=== PATIENT | male | born 1995 | race Caucasian/White ===

== ENCOUNTER 2022-05-17 08:53 | Emergency (ER) | payer MEDICAID, SELFPAY ==
[2022-05-17 09:02] VITALS: BP 133/78; PULSE 74; RESP 16; TEMP 36.4; O2SAT 100; BMI 25.8
--- NOTE | 2022-05-17 09:30 | ED.LOWEXIN ---
HPI - Extremity Injury (Lower) General Chief Complaint: Extremity Injury, Lower Stated Complaint: R knee and ankle injury Time Seen by Provider: 05/17/22 09:11 Source: patient Mode of arrival: ambulatory Limitations: no limitations History of Present Illness HPI Narrative: This is a [id number] presenting today with complaints of right knee weakness and right ankle tightness since yesterday. Patient states that while he was in [facility], his opponent was holding his straightened right leg in the opponents arm, and his straightened right leg twisted outwards and patient felt a popping sensation in his right knee and right ankle. Patient reports that he has not had pain in his right knee or ankle, but states that he feels as though his right knee is going to give out on him. He also reports that his right ankle feels tight . He has been able to ambulate, but limps as he is cautious as if his right leg will give out on him. Denies taking any medications to treat his symptoms. Hx of right knee sprain in the past, otherwise no surgeries or injuries to his right ankle or right knee. complaint: knee injury and ankle injury Onset (ago): day(s) Place: other Severity: moderate Relieving factors: nothing Exacerbating factors: weight bearing Associated symptoms: snap/pop sensation Other symptoms: none Related Data Allergies Allergy/AdvReac Type Severity Reaction Status Date / Time No Known Allergies Allergy Unverified 11/11/19 18:38 [No Known Allergies*] Review of Systems Review of Systems: Yes all other systems are reviewed and are negative Constitutional: Constitutional: Reports no additional constitutional complaints, Denies body ache(s), Denies chills, Denies fever(s), Denies headache(s) and Denies weakness Eyes: Eyes: Reports no additional eye complaints and Denies change in vision ENT: Reports system reviewed and no additional complaints, except as documented, Denies dizziness, Denies headache(s), Denies nasal congestion, Denies nasal discharge and Denies neck pain Cardiovascular: Cardiovascular: Reports no additional cardiovascular complaints, Denies chest pain, Denies leg edema and Denies dyspnea Respiratory: Respiratory: Reports no additional respiratory complaints, Denies cough and Denies dyspnea Gastrointestinal: Gastrointestinal: Reports no additional gastrointestinal complaints, Denies abdominal pain, Denies diarrhea, Denies nausea and Denies vomiting Genitourinary: Genitourinary: Denies urinary incontinence Musculoskeletal: Musculoskeletal: Reports no additional musculoskeletal complaints, Reports abnormal gait, Denies back pain, Denies arthralgias, Denies joint swelling, Denies neck pain, Denies numbness, Reports stiffness and Denies tingling Integumentary/Breasts: Skin/Breast: Reports system reviewed and no additional complaints, except as docu and Denies rash Neurologic: Reports system reviewed and no additional complaints, except as documented, Denies Abnormal speech present, Reports abnormal gait, Denies dizziness, Denies headache(s), Denies numbness, Denies tingling and Denies weakness [facility] Social History Social History Advance Directives: No Advance Directives Information Provided: No Physical Exam Vital Signs: Vital Signs: Last Vital Signs Temp 97.5 F 05/17/22 09:02 Pulse 74 05/17/22 09:02 Resp 16 05/17/22 09:02 BP 133/78 05/17/22 09:02 Pulse Ox 100 05/17/22 09:02 O2 Del Method Room Air 05/17/22 09:02 BMI result Body Mass Index 25.8 Const: General: cooperative, healthy appearing, comfortable and no acute distress Orientation/consciousness: patient oriented x3 Limitations: no limitations HEENT: Head: Yes normal to inspection Ears: hearing grossly normal bilaterally General nose exam: Normal external nose present Face and sinus: Yes normal facial exam Mouth: Normal oral and palatal mucosa present Throat: Yes posterior oropharynx normal Eyes: General: appearance normal, both eyes and all related structures Pupils: Equal, round and reactive pupils present Neck: Neck: Yes normal visual inspection Chest: Chest palpation & inspection: normal inspection of the chest Resp: Effort & Inspection: normal respiratory effort Auscultation: clear to auscultation bilaterally Cardio: Rate: regular rate Rhythm: regular rhythm Peripheral pulses: Peripheral pulses 2+ throughout GI: Inspection: Yes normal to inspection Palpation (GI): Soft to palpation and nontender Auscultation: normal bowel sounds Back/Spine/Pelvis: Thoracic/Lumbar Spine: thoracic and lumbar spine normal to inspection Skin: General skin exam: no rashes or lesions noted Neuro: General: patient oriented x3, no focal motor deficits and normal sensation to monofilament Cranial nerves: Yes Equal, round and reactive pupils present Cognition (Neuro): normal cognition Speech: No Abnormal speech present Gait exam (Neuro): Normal gait present Motor exam (neuro): 5/5 motor strength present throughout Extrem: Other: Right knee with no gross deformities, edema, erythema, increased warmth, or ecchymosis. Passive and active range of motion of the right knee is full and intact. No creptius, no patellar ballottement. No tenderness over the medial or lateral joint line. No tenderness with varus or valgus strain. Mahmood's test is negative. Right ankle and foot: no obvious deformities, erythema, edema, or ecchymosis. Nontender tarsals and metatarsals. No tenderness over the lateral or medial mallelous. Distal pulses 2+. Sensation intact. General: Yes normal to inspection, Yes full ROM, Yes capillary refill normal, Yes no clubbing, cyanosis or edema, Yes no pedal edema and Yes no calf tenderness Medical Decision Making Medical Decision Making MDM Narrative: 26 yo M presents for evaluation of right knee weakness and right ankle tightness since yesterday. Exam is normal for both right ankle and right foot. Discussed risks vs benefits of x-rays at this time, very unlikely for any bony abnormalities. Will defer xrays at this time. Advised to rest, ice, elevate right ankle and right knee and symptoms should improve. Give juan wrap and crutches. Advised to f/u with PCP. Differential Diagnosis Differential Diagnoses: The differential diagnosis associated with the presentation includes right ankle sprain, right knee sprain, right knee strain, fracture, ligamentous tear. less likely vascular injury Tests considered The following testing was considered but not selected: considered knee x-ray but no direct trauma, no palpable tenderness, low concern for bony abnormality d/w with patient who is agreeable. Critical Care Time Critical Care Time Critical Care Time: No Discharge Plan Discharge Clinical Impression: Right knee sprain Patient Disposition: Home, Self-Care Instructions: Knee Sprain (DC), Crutch Instructions (ED), How to Use an Elastic Bandage (ED) Additional Instructions: Rest, ice, elevation Limit use of the extremity for the next 5-7 days Use the Juan wrap and crutches as needed Follow-up with primary care doctor for persistent symptoms greater than 7 days Take Motrin or Tylenol as needed Referrals: [facility] [Primary Care Provider] - 1 week (as needed) Interventions: ED Discharge Assessment Last Done: 05/17/22 10:23 Discharge Date/Time: 05/17/22 10:23
== END 2022-05-17 10:23 | disposition home or self-care (01) ==
PROVIDERS: Emergency Provider Student in an Organized Health Care Education/Training Program
DX: S83.91XA Sprain of unspecified site of right knee, initial encounter (principal); X50.1XXA Overexertion from prolonged static or awkward postures, initial encounter; Y93.9 Activity, unspecified; Y92.9 Unspecified place or not applicable; Y99.9 Unspecified external cause status
CPT/HCPCS: 99282

== ENCOUNTER 2024-10-18 10:56 | Outpatient (REF) | payer MEDICAID, SELFPAY ==
--- OUTSIDE RECORDS SUMMARY | 2024-10-18 10:15 | XMS_ITS | Encounter Summary ---
Author Organization [email or web address] Address [address] [place] [address] Care Team Providers Care [employer] Manager Name Role Phone Name, Jose WILLIAMSON Primary Care Provider [phone] Reason for Visit * Reason Comments Annual Exam Encounter Details Date Type Department Care Team ([facility] st Contact Info) Description 10/18/2024 10:15 AM EDT Office Visit [facility] [address] [place] [address] Name, MD Jose [address] [place] [address] PE (physical exam), routine (Primary Dx); Screening for diabetes mellitus; Screening for cholesterol level; Encounter for immunization; Weight gain; Pruritus of groin in male Social History Tobacco Use Types Packs/Day Years Used Date Smoking Tobacco: Never Smokeless Tobacco: Never Tobacco Cessation:Counseling Given: Not Answered Comments:Vaping use, quit 2 years ago. Alcohol Use Standard Drinks/Week Comments Yes 4 (1 standard drink = 0.6 oz pur e alcohol) Social drinking occasionally. Alcohol Answer Date Recorded How often do you have a drink containing alcohol ? 2 10/18/2024 How many drinks containing a lcohol do you have on a typical day when you are drinking? 4 10/18/2024 How often do you have six or more drinks on one occasion? 2 10/18/2024 Depression Answer Date Recorded Patient Health Questionnaire-9 Score 5 10/18/2024 Patient Health Questionnaire-9 Score 5 10/18/2024 Last PHQ-9: Questionnaire Data Not on file 0 10/18/2024 Housing Stability Answer Date Recorded What is your housing situation today? I have shivani morales 10/18/[address] you li ve. Do you have problems with any of the following? None of the above 10/18/2024 Food Insecurity Answer Date Recorded Within the past 12 months, y ou worried that your food would run out before you got money to buy more: Sometimes True 2024 Within the past 12 months,th e food you bought just didn't last and you didn't have enough money to get more: Never True 10/18/2024 Transportation Answer Date Recorded In the past 12 months, has l ack of transportation kept you from medical appts, meetings, work or from getting things needed for daily living? No 10/18/2024 Utilities Answer Date Recorded In the past 12 months, has t he electric, gas, oil or water company threatened to shut off services in your home? No 10/18/2024 Depression Answer Date Recorded Patient Health Questionnaire-2 Score 0 10/18/2024 Internet Access Answer Date Recorded Internet Access Q1 Yes 10/18/2024 Internet Access Q2 Not on file 10/18/2024 Sex and Gender Information Value Date Recorded Sex Assigned at Male 12/24/2021 10:25 AM EDT Legal Sex Male 10:25 AM EDT Gender Identity Male 12/24/2021 10:25 AM EDT Sexual Orientation Choose not to disclose 2021 10:25 AM EDT documented as of this encounter Last Filed Vital Signs Vital Sign Reading Time Taken Comments Blood Pressure 124/78 10/18/2024 10:19 AM EDT Pulse 81 10/18/2024 10:19 AM EDT Temperature 36.2 C (97.1 F) 10/18/2024 10:19 AM EDT Respiratory Rate 21 10/18/2024 10:19 AM EDT Oxygen Saturation 97% 10/18/2024 10:19 AM EDT Inhaled Oxygen Concentration - - Weight 85.9 kg (189 lb 6.4 oz) 10/18/2024 10:19 AM EDT Height 170.2 cm (5' 7 ) 10/18/2024 10:19 AM EDT Body Mass Index 29.66 10/18/2024 10:19 AM EDT documented in this encounter Functional Status * Over the past 2 weeks, how often have you been bothered by any of the following problems? Question Answer Date of Assessment Author Patient Health Questionnaire-2 Score 0 10/18/2024 10:50 AM Aamir Thomson [place] * Little interest or pleasure in doing things Answer Date of Assessment Author Not at all 10/18/2024 10:50 AM Devi Thomson [place] * Feeling down, depressed, or hopeless Answer Date of Assessment Author Not at all 10/18/2024 10:50 AM Devi Thomson [place] * Trouble falling or staying asleep, or sleeping too much Answer Date of Assessment Author More than half the days 10/18/2024 10:50 AM Devi Thomson [place] * Feeling tired or having little energy Answer Date of Assessment Author More than half the days 10/18/2024 10:50 AM Devi Thomson MA * Poor appetite or overeating Answer Date of Assessment Author Several days 10/18/2024 10:50 AM Devi Thomson [place] * Feeling bad about yourself - or that you are a failure or have let yourself or your family down Answer Date of Assessment Author Not at all 10/18/2024 10:50 AM Devi Thomson MA * Trouble concentrating on things, such as reading the newspaper or watching television Answer Date of Assessment Author Not at all 10/18/2024 10:50 AM Devi Thomson [place] * Moving or speaking so slowly that other people could have noticed? Or the opposite - being so fidgety or restless that you have been moving around a lot more than usual. Answer Date of Assessment Author Not at all 10/18/2024 10:50 AM Devi Thomson MA * Thoughts that you would be better off or hurting yourself in some way Answer Date of Assessment Author Not at all 10/18/2024 10:50 AM Devi Thomson MA * Patient Health Questionnaire-9 Score Answer Date of Assessment Author 5 10/18/2024 10:50 AM Devi Thomson MA * How difficult have these problems made it for you to do your work, take care of things at home, or get along with other people? Answer Date of Assessment Author Not difficult at all 10/18/2024 10:50 AM EDT Devi Jean-Baptiste MA documented as of this encounter Progress Notes * Jose Yo MD - 10/18/2024 10:15 AM EDT Subjective Patient ID: Adria Chaidez is a 28 y.o. male who presents for Annual Exam. Patient comes for a physical exam. This is a requirement of his job. 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 His jobs involve occasional heavy lifting. He can do his job without difficulties. He specifically denies any back pain, no chest pain, no shortness of breath. Patient does not smoke cigarettes, he rarely drinks alcohol, he does not use illicit drugs. He is concerned about weight gain over the past couple years. He admits to a liberal diet and he only recently became physically active. He has a family history of diabetes. The patient is sexually active with 1 female. He uses condoms. Review of Systems Constitutional: Negative for chills, fatigue and fever. HENT: Negative for sore throat. Respiratory: Negative for cough, chest tightness and shortness of breath. Cardiovascular: Negative for chest pain, palpitations and leg swelling. Gastrointestinal: Negative for abdominal pain and blood in stool. Skin: Patient complains of 2-3 weeks of groin pruritus and redness Visit Vitals BP 124/78 (BP Location: Left arm, Patient Position: Sitting, BP Cuff Size: Adult) Pulse 81 Temp 97.1 ??F (36.2 ??C) (Temporal) Resp 21 Ht 5' 7 (1.702 m) Wt 189 lb 6.4 oz (85.9 kg) SpO2 97% BMI 29.66 kg/m?? Smoking Status Never BSA 2.02 m?? Objective Physical Exam Constitutional: Appearance: Normal appearance. Cardiovascular: Rate and Rhythm: Normal rate and regular rhythm. Heart sounds: No murmur heard. Pulmonary: Effort: Pulmonary effort is normal. No respiratory distress. Breath sounds: No wheezing, rhonchi or rales. Abdominal: Palpations: Abdomen is soft. Tenderness: There is no abdominal tenderness. Musculoskeletal: Right lower leg: No edema. Left lower leg: No edema. Skin: Comments: Slight groin redness on exam Neurological: Mental Status: He is alert. Assessment/Plan Diagnoses and all orders for this visit: PE (physical exam), routine Comments: I recommended regular physical activity Avoid sweets and soda Avoid processed foods Tdap today Check fasting blood work listed below including TSH because of his history of weight gain Clotrimazole/betamethasone cream for groin pruritus that is likely secondary to tinea cruris. Orders: - TDAP VACCINE 7 yrs + Screening for diabetes mellitus - Comprehensive Metabolic Panel; Future Screening for cholesterol level - Lipid Panel, Standard; Future Encounter for immunization - TDAP VACCINE 7 yrs + Weight gain - TSH W/Reflex to FT4; Future Pruritus of groin in male - clotrimazole-betamethasone (Lotrisone) cream; Apply topically 2 times daily for 28 days. documented in this encounter Plan of Treatment Upcoming Encounters Date Type Department Care Team (Late st Contact Info) Description 10/27/2024 10:30 AM EDT Office Visit [facility] [address] [place] [address] Scheduled Orders Name Type Priority Associated Diagnoses Orde r Schedule Comprehensive Metabolic Panel Lab Routine Screening for diabetes mellitus Expected: 10/18/2024 (Approximate), Expires: 10/18/2025 Lipid Panel, Standard Lab Routine Screening for cholesterol level Expected: 10/18/2024 (Approximate), Expires: 10/18/2025 TSH W/Reflex to FT4 Lab Routine Weight gain Expected: 10/18/2024 (Approximate), Expires: 10/18/2025 documented as of this encounter Visit Diagnoses Diagnosis PE (physical exam), routine- Primary Screening for diabetes mellitus Screening for cholesterol level Encounter for immunization Weight gain Other symptoms concerning nutrition, metabolism, and development Pruritus of groin in male documented in this encounter Additional Health Concerns Assessment Noted Time PHQ-9 Depression Total Score: 5 10/19/19 10:50 AM EDT documented as of this encounter Care Teams [employer] Manager Relationship Specialty Start Date End Date Name, MD Jose [address] [place] [address] PCP - General Internal Medicine 10/18/24 documented as of this encounter
[2024-10-18 14:31] LABS: Alanine Aminotransferase 50 U/L (0-40); Albumin Level 4.3 g/dL (3.5-5.0); Alkaline Phosphatase 57 U/L (39-117); Anion Gap 11 (12-20); Aspartate Amino Transferase 31 U/L (5-37); Blood Urea Nitrogen 16 mg/dL (9-16); Calcium 9.1 mg/dL (8.4-10.2); Carbon Dioxide 27 mmol/L (22-29); Chloride 105 mmol/L (96-108); Cholesterol 233 mg/dL (<200); Estimated Glomerular Filt Rate > 60; HDL Cholesterol 41 mg/dL (>40); Potassium 4.1 mmol/L (3.3-5.1); Sodium 139 mmol/L (135-145); Total Protein 6.6 g/dL (6.5-8.0); Triglycerides 94 mg/dL (<150)
== END 2024-10-18 10:57 | disposition home or self-care (01) ==
LOC: HO.HHCL 10:56
PROVIDERS: PCP Internal Medicine Geriatric Medicine; Visit Provider Internal Medicine Geriatric Medicine
DX: Z13.1 Encounter for screening for diabetes mellitus (principal); Z13.220 Encounter for screening for lipoid disorders; R63.5 Abnormal weight gain
CPT/HCPCS: 36415; 80053; 80061; 84443